=== PATIENT | female | born 2000 | race Caucasian/White ===

== ENCOUNTER 2018-07-07 02:09 | Emergency (ER) | payer OTHER ==
[~2018-07-07] VITALS: Ht 167.6 cm; Wt 86.2 kg
[2018-07-07 02:57] LABS: BILIRUBIN,URINE NEGATIVE (NEG); CLARITY,URINE CLEAR; COLOR,URINE YELLOW; NITRITE,URINE NEGATIVE (NEG); PROTEIN,URINE 30 mg/dL (NEG-TRACE)
--- NOTE | 2018-07-07 03:01 | PHYS DOC ---
Past Medical History Past Medical History: No Pertinent History Alcohol Use: None Drug Use: None Adult General Chief Complaint Chief Complaint: FLANK PAIN HPI HPI Patient is a 18 year old female who presents with right sided flank tenderness and is 18 weeks . Patient states the pain started about 6:00 this afternoon. Patient has no previous history of kidney stones and says it is sharp in her right flank area. Patient is 1 para 0 and is followed at by Dr. Johnson Review of Systems Review of Systems Constitutional: Denies fever or chills [] Eyes: Denies change in visual acuity, redness, or eye pain [] HENT: Denies nasal congestion or sore throat [] Respiratory: Denies cough or shortness of breath [] Cardiovascular: No additional information not addressed in HPI [] GI: Denies abdominal pain, nausea, vomiting, bloody stools or diarrhea [] : Denies dysuria or hematuria, positive for right flank pain [] Musculoskeletal: Denies back pain or joint pain [] Integument: Denies rash or skin lesions [] Neurologic: Denies headache, focal weakness or sensory changes [] Endocrine: Denies polyuria or polydipsia [] All other systems were reviewed and found to be within normal limits, except as documented in this note. Current Medications Current Medications Current Medications Medications (Trade) Dose Ordered Sig/Benoit Start Time Stop Time Status Last Admin Dose Admin Ceftriaxone Sodium 1 gm/ Dextrose 50 ml @ 100 mls/hr 1X ONCE 07/07/18 04:30 07/07/18 04:34 DC Ceftriaxone Sodium 50 ml @ 100 mls/hr 1X ONCE 07/07/18 05:00 07/07/18 05:29 07/07/18 04:45 100 MLS/HR Allergies Allergies Allergies Coded Allergies Type Severity Reaction Last Updated Verified No Known Drug Allergies 07/07/18 No Physical Exam Physical Exam Constitutional: Well developed, well nourished, no acute distress, non-toxic appearance. [] HENT: Normocephalic, atraumatic, bilateral external ears normal, oropharynx moist, no oral exudates, nose normal. [] Eyes: PERRLA, EOMI, conjunctiva normal, no discharge. [] Neck: Normal range of motion, no tenderness, supple, no stridor. [] Cardiovascular:Heart rate regular rhythm, no murmur [] Lungs & Thorax: Bilateral breath sounds clear to auscultation [] Abdomen: Bowel sounds normal, soft, no tenderness in RLQ, no masses, no pulsatile masses. [] Skin: Warm, dry, no erythema, no rash. [] Back: No tenderness except right sided CVA tenderness. [] Extremities: No tenderness, no cyanosis, no clubbing, ROM intact, no edema. [] Neurologic: Alert and oriented X 3, normal motor function, normal sensory function, no focal deficits noted. [] Psychologic: Affect normal, judgement normal, mood normal. [] Current Patient Data Vital Signs Vital Signs Date Time Temp Pulse Resp B/P (MAP) Pulse Ox O2 Delivery O2 Flow Rate FiO2 07/07/18 04:40 82 114/66 (82) 98 Room Air 07/07/18 02:31 97.8 18 97.8 Lab Values Laboratory Tests Test 07/07/18 02:30 07/07/18 03:00 Urine Collection Type Unknown Urine Color Yellow Urine Clarity Clear Urine pH 7.0 Urine Specific [place] 1.015 Urine Protein 30 mg/dL (NEG-TRACE) Urine Glucose (UA) Negative mg/dL (NEG) Urine Ketones (Stick) 40 mg/dL (NEG) Urine Blood Small (NEG) Urine Nitrite Negative (NEG) Urine Bilirubin Negative (NEG) Urine Urobilinogen Dipstick 2.0 mg/dL (0.2 mg/dL) Urine Leukocyte Esterase Moderate (NEG) Urine RBC Occ /HPF (0-2) Urine WBC 20-40 /HPF (0-4) Urine Squamous Epithelial Cells Few /LPF Urine Bacteria Many /HPF (0-FEW) Urine Mucus Mod /LPF White Blood Count 11.5 x10^3/uL (4.0-11.0) H Red Blood Count 3.80 x10^6/uL (3.50-5.40) Hemoglobin 11.3 g/dL (12.0-15.5) L Hematocrit 32.7 % (36.0-47.0) L Mean Corpuscular Volume 86 fL (79-100) Mean Corpuscular Hemoglobin 30 pg (25-35) Mean Corpuscular Hemoglobin Concent 35 g/dL (31-37) Red Cell Distribution Width 15.4 % (11.5-14.5) H Platelet Count 180 x10^3/uL (140-400) Neutrophils (%) (Auto) 82 % (31-73) H Lymphocytes (%) (Auto) 11 % (24-48) L Monocytes (%) (Auto) 6 % (0-9) Eosinophils (%) (Auto) 0 % (0-3) Basophils (%) (Auto) 0 % (0-3) Neutrophils # (Auto) 9.4 x10^3uL (1.8-7.7) H Lymphocytes # (Auto) 1.3 x10^3/uL (1.0-4.8) Monocytes # (Auto) 0.7 x10^3/uL (0.0-1.1) Eosinophils # (Auto) 0.0 x10^3/uL (0.0-0.7) Basophils # (Auto) 0.0 x10^3/uL (0.0-0.2) Sodium Level 143 mmol/L (136-145) Potassium Level 3.7 mmol/L (3.5-5.1) Chloride Level 109 mmol/L (98-107) H Carbon Dioxide Level 24 mmol/L (21-32) Anion Gap 10 (6-14) Blood Urea Nitrogen 7 mg/dL (7-20) Creatinine 0.6 mg/dL (0.6-1.0) Estimated GFR (Cockcroft-Gault) 127.5 BUN/Creatinine Ratio 12 (6-20) Glucose Level 102 mg/dL (70-99) H Calcium Level 9.0 mg/dL (8.5-10.1) Total Bilirubin 0.3 mg/dL (0.2-1.0) Aspartate Amino Transferase (AST) 15 U/L (15-37) Alanine Aminotransferase (ALT) 27 U/L (14-59) Alkaline Phosphatase 72 U/L (46-116) Total Protein 6.5 g/dL (6.4-8.2) Albumin 2.9 g/dL (3.4-5.0) L Albumin/Globulin Ratio 0.8 (1.0-1.7) L Amylase Level 59 U/L (25-115) Lipase 134 U/L (73-393) Laboratory Tests 07/07/18 03:00 Laboratory Tests 07/07/18 03:00 EKG EKG [] Radiology/Procedures Radiology/Procedures [] Course & Med Decision Making Course & Med Decision Making Pertinent Labs and Imaging studies reviewed. (See chart for details) Discussed with OB on-call, Dr. Estrada. Given the fact that the patient is afebrile and that her pain is controlled we can give IV Rocephin in the emergency department and sent out on Bactrim 10 day course with outpatient follow-up. [] Dragon Disclaimer Dragon Disclaimer This electronic medical record was generated, in whole or in part, using a voice recognition dictation system. Departure Departure Impression: Primary Impression: UTI (urinary tract infection) Additional Impression: Pyelonephritis Disposition: HOME, SELF-CARE Condition: STABLE Referrals: CANDI WEISS MD Patient Instructions: - Urinary Tract Infection Scripts Sulfamethoxazole/Trimethoprim (BACTRIM DS TABLET) 1 Each Tablet 1 TAB PO BID, #20 TAB Prov: ALYCIA MAHER MD 07/07/18 Problem Qualifiers ALYCIA MAHER MD Jul 07, 2018 03:01
[2018-07-07 03:14] LABS: BACTERIA,URINE MANY /HPF (0-FEW); RBC,URINE OCC /HPF (0-2); SQUAMOUS EPITHELIAL CELL,UR FEW /LPF; WBC,URINE 20-40 /HPF (0-4)
[2018-07-07 03:15] LABS: BASO % 0 % (0-3); EOS % 0 % (0-3); HEMATOCRIT 32.7 % (36.0-47.0); HEMOGLOBIN 11.3 g/dL (12.0-15.5); LYMPH # 1.3 x10^3/uL (1.0-4.8); LYMPH % 11 % (24-48); MEAN CORPUSCULAR HEMOGLOBIN 30 pg (25-35); MEAN CORPUSCULAR HGB CONC 35 g/dL (31-37); MEAN CORPUSCULAR VOLUME 86 fL (79-100); MONO # 0.7 x10^3/uL (0.0-1.1); MONO % 6 % (0-9); NEUT # 9.4 x10^3uL (1.8-7.7); NEUT % 82 % (31-73); PLATELET COUNT 180 x10^3/uL (140-400); RED CELL DISTRIBUTION WIDTH 15.4 % (11.5-14.5); WHITE BLOOD COUNT 11.5 x10^3/uL (4.0-11.0)
[2018-07-07 03:23] LABS: CREATININE 0.6 mg/dL (0.6-1.0); GFR 127.5; POTASSIUM 3.7 mmol/L (3.5-5.1)
[2018-07-07 03:25] LABS: AMYLASE 59 U/L (25-115); LIPASE 134 U/L (73-393)
[2018-07-07 03:28] LABS: ALBUMIN 2.9 g/dL (3.4-5.0); ALBUMIN/GLOBULIN RATIO 0.8 (1.0-1.7); TOTAL BILIRUBIN 0.3 mg/dL (0.2-1.0); TOTAL PROTEIN 6.5 g/dL (6.4-8.2)
--- NOTE | 2018-07-07 04:47 | RAD ---
CLINICAL HISTORY: RIGHT FLANK PAIN X'S 1 DAY. PT IS 18 WEEKS . COMPARISON: None available. TECHNIQUE: Ultrasound examination of the bilateral kidneys and urinary bladder was performed. FINDINGS: The right kidney measures 10.4 cm in bipolar length. The renal cortex is normal in thickness. Renal echogenicity is normal. There is no evidence for hydronephrosis, shadowing renal calculus or focal abnormality . The left kidney measures 10.8 cm in bipolar length. The renal cortex is normal in thickness. Renal echogenicity is normal. There is no evidence for hydronephrosis, shadowing renal calculus or focal abnormality. In addition images of the right lower quadrant were obtained. The appendix is not visualized. IMPRESSION: Essentially normal sonographic survey of the kidneys. No hydronephrosis or focal renal lesion. Electronically signed by: Renny Brenner MD (07/07/2018 4:43 AM) [id number]
--- NOTE | 2018-07-07 04:53 | RAD ---
CLINICAL HISTORY: Right flank pain COMPARISON: None available. TECHNIQUE: Transabdominal ultrasound of the uterus was performed. FINDINGS: There is a single live fetus in breech position. The placenta is posterior without placenta previa. There is a focal hypoechoic segment within the placenta, of uncertain clinical significance. The umbilical cord has three vessels and a normal insertion into the abdomen. Cardiac rate is 163 bpm. measurements are: BPD - 4.2 cm = 18 weeks 4 days HC - 15.5 cm = 18 weeks 3 days AC - 12.6 cm = 18 weeks 1 day FL - 2.8 cm = 18 weeks 3 days Estimated weight is 234 g. The gestational size based on these measurements is 18 weeks 3 days +/- two weeks. The estimated date of delivery is 12/05/2018. IMPRESSION: 1. Single live intrauterine gestation in breech presentation with estimated delivery date 12/05/2018. 2. Small segment of focal low-attenuation within the placenta, of uncertain clinical significance. Recommend close attention on follow-up. Electronically signed by: Renny Brenner MD (07/07/2018 4:49 AM) [id number]
[2018-07-07] MEDS ORDERED: SULF1TAB24 PO (05:21)
[2018-07-07 05:40] VITALS: BP 114/66
== END 2018-07-07 05:41 | disposition home or self-care (01) ==
LOC: ER 02:09
DX: O23.42 Unspecified infection of urinary tract in pregnancy, second trimester (principal); O26.832 Pregnancy related renal disease, second trimester; N12 Tubulo-interstitial nephritis, not specified as acute or chronic; Z3A.18 18 weeks gestation of pregnancy
CPT/HCPCS: 36415; 76775; 76805; 76817; 80053; 81001; 82150; 83690; 85025; 96365; 99285; J0690